=== PATIENT | male | born 1985 ===

== ENCOUNTER 2017-08-17 01:26 | Emergency (ER) | payer MEDICAID ==
[2017-08-17 01:46] VITALS: BP 145/93; PULSE 80; RESP 16; TEMP 97.7; O2SAT 100
--- NOTE | 2017-08-17 04:43 | CT ---
EXAM: CT Abdomen and Pelvis Without Intravenous Contrast CLINICAL HISTORY: 32 years old, male; Pain; Abdominal pain; Flank; Right; Additional info: Right flank pain TECHNIQUE: Axial computed tomography images of the abdomen and pelvis without intravenous contrast. All CT scans at this facility use one or more dose reduction techniques, viz.: automated exposure control; ma/kV adjustment per patient size (including targeted exams where dose is matched to indication; i.e. head); or iterative reconstruction technique. Coronal and sagittal reformatted images were created and reviewed. COMPARISON: CT ABD AND PELV W/CONTRAST 2014-01-02 04:50 FINDINGS: Limitations: Motion artifact - mild. Lower thorax: No acute findings. ABDOMEN: Liver: Fatty infiltration. Small calcification. Gallbladder and bile ducts: No calcified stones. No ductal dilation. Pancreas: Unremarkable. No ductal dilation. Spleen: No splenomegaly. Adrenals: No mass. Kidneys and ureters: No renal calculi. No hydronephrosis. Stomach and bowel: No definite mural thickening. No obstruction. Appendix: Normal caliber. No inflammation. PELVIS: Bladder: Unremarkable. No stones. Reproductive: Unremarkable as visualized. ABDOMEN and PELVIS: Intraperitoneal space: No significant fluid collection. No free air. Bones/joints: Mild degenerative changes of spine. No acute fracture. Soft tissues: Unremarkable. Vasculature: Unremarkable. No aneurysm. Lymph nodes: No pathologically enlarged lymph nodes. IMPRESSION: 1. No definite CT evidence of urolithiasis. 2. Incidental/non-acute findings are described above.
--- NOTE | 2017-08-17 05:45 | ED PDOC ---
HPI: Male Pain Time Seen by Provider: 08/17/17 03:12 Chief Complaint (Nursing): Male Genitourinary Chief Complaint (Provider): Right flank/back pain History Per: Patient, Family History/Exam Limitations: clinical condition Onset/Duration Of Symptoms: Days Current Symptoms Are (Timing): Still Present Severity: Mild Additional Complaint(s): Mother states patient is autistic and has been complaining of right sided pain. No fall or injury. Mother states that he is not a good historian. Pt was not given medications for pain. No N/V. Normal BM Past Medical History Reviewed: Historical Data, Nursing Documentation, Vital Signs Vital Signs: Last Vital Signs Temp 97.7 F 08/17/17 01:44 Pulse 80 08/17/17 01:44 Resp 16 08/17/17 01:44 BP 145/93 H 08/17/17 01:44 Pulse Ox 100 08/17/17 01:44 - Medical History PMH: No Chronic Diseases - Surgical History Surgical History: No Surg Hx - Family History Family History: States: No Known Family Hx - Living Arrangements Living Arrangements: With Family - Social History Current smoker - smoking cessation education provided: No - Home Medications Home Medications: Ambulatory Orders Medication Instructions Recorded Ibuprofen [Motrin Tab] 800 mg PO Q6H PRN #20 tab 08/17/17 - Allergies Allergies/Adverse Reactions: Allergies Allergy/AdvReac Type Severity Reaction Status Date / Time No Known Allergies Allergy Verified 08/17/17 01:43 Review of Systems ROS Statement: Except As Marked, All Systems Reviewed And Found Negative Constitutional: Negative for: Fever, Chills Gastrointestinal: Negative for: Nausea, Vomiting, Abdominal Pain Musculoskeletal: Positive for: Other Physical Exam - Reviewed Nursing Documentation Reviewed: Yes Vital Signs Reviewed: Yes - Physical Exam Appears: Positive for: Well, Non-toxic, No Acute Distress Head Exam: Positive for: ATRAUMATIC, NORMAL INSPECTION, NORMOCEPHALIC Skin: Positive for: Normal Color, Warm, DRY Eye Exam: Positive for: Normal appearance ENT: Positive for: Normal ENT Inspection Neck: Positive for: Normal, Painless ROM Cardiovascular/Chest: Positive for: Regular Rate, Rhythm Respiratory: Positive for: Normal Breath Sounds. Negative for: Accessory Muscle Use, Respiratory Distress Gastrointestinal/Abdominal: Positive for: Normal Exam, Bowel Sounds, Soft. Negative for: Tenderness Back: Positive for: Normal Inspection Extremity: Positive for: Normal ROM Neurologic/Psych: Positive for: Alert, Oriented - ECG O2 Sat by Pulse Oximetry: 100 Medical Decision Making Medical Decision Making: CT normal. Urine normal. Disposition - Clinical Impression Clinical Impression: Back pain - Patient ED Disposition Is Patient to be Admitted: No Counseled Patient/Family Regarding: Diagnosis, Need For Followup, Rx Given - Disposition Disposition: Routine/Home Disposition Time: 05:47 Condition: GOOD Prescriptions: Ibuprofen [Motrin Tab] 800 mg PO Q6H PRN #20 tab PRN Reason: Pain Instructions: Acute Low Back Pain (ED) Forms: [facility] (Icelandic) Print Language: ICELANDIC
== END 2017-08-17 06:35 | disposition home or self-care (01) ==
LOC: H.ER 01:26
DX: M54.5 Low back pain (principal); R10.9 Unspecified abdominal pain; F84.0 Autistic disorder

== ENCOUNTER 2017-11-02 00:52 | Emergency (ER) | payer MEDICAID ==
[2017-11-02 00:56] VITALS: BP 125/75; PULSE 78; RESP 18; TEMP 98; O2SAT 99
--- NOTE | 2017-11-02 01:52 | ED PDOC ---
HPI: Back Chief Complaint (Provider): Back pain History Per: Patient, Family (Mother) Onset/Duration Of Symptoms: Persistent, Other (months) Current Symptoms Are (Timing): Still Present Quality Of Discomfort: "Pain" Pain Scale Rating Of: 6 Additional Complaint(s): 32 y/o male with PMHx of Autism, and Mental retardation ( History obtained from patient's mother) presents to ED complaining of lower back pain since August this year. Lower back pain is not radiating to lower extremities, no associated with urinary symptoms. Mom denies history of any trauma. Denies Numbness, tingling and/or weakness of lower extremities. Will is able to stand and ambulate by himself without difficulty, and is not using any human or device assistance at home for transfer or ambulation. Mom denies blood in urine, bowel or bladder incontinence. PMD: Adrianne Machado <Kamla Rios - Last Filed: 11/02/17 06:37> <Danae Oviedo - Last Filed: 11/03/17 01:56> Time Seen by Provider: 11/02/17 01:15 Chief Complaint (Nursing): Back Pain Past Medical History Vital Signs: Last Vital Signs Temp 98 F 11/02/17 00:53 Pulse 78 11/02/17 00:53 Resp 11/02/17 00:53 BP 125/75 11/02/17 00:53 Pulse Ox 99 11/02/17 00:53 - Family History Family History: States: No Known Family Hx <Kamla Rios - Last Filed: 11/02/17 06:37> Vital Signs: Last Vital Signs Temp 98 F 11/02/17 00:53 Pulse 78 11/02/17 00:53 Resp 11/02/17 00:53 BP 125/75 11/02/17 00:53 Pulse Ox 99 11/02/17 06:38 <Danae Oviedo - Last Filed: 11/03/17 01:56> - Home Medications Home Medications: Ambulatory Orders Medication Instructions Recorded Ibuprofen [Motrin Tab] 800 mg PO Q6H PRN #20 tab 08/17/17 Ibuprofen [Motrin] 600 mg PO Q6H PRN #20 tab 11/02/17 - Allergies Allergies/Adverse Reactions: Allergies Allergy/AdvReac Type Severity Reaction Status Date / Time No Known Allergies Allergy Verified 08/17/17 01:43 Supervising Attending Note - Supervising Attending Note The Documented history was done by the: Physician Mothers Helper The documented physical exam was done by the: Physician Mothers Helper The documented procedures were done by the: Physician Mothers Helper - Attestation: I have personally seen and examined this patient.: Yes I have fully participated in the care of the patient.: Yes I have reviewed all pertinent clinical information: Yes <Danae Oviedo - Last Filed: 11/03/17 01:56> Review of Systems ROS Statement: Except As Marked, All Systems Reviewed And Found Negative <Kamla Rios - Last Filed: 11/02/17 06:37> Physical Exam - Reviewed Vital Signs Reviewed: Yes - Physical Exam Appears: Positive for: Non-toxic, No Acute Distress. Negative for: In Acute Distress Skin: Positive for: Normal Color, Warm, Dry Eye Exam: Positive for: Normal appearance ENT: Positive for: Normal ENT Inspection Neck: Positive for: Supple Cardiovascular/Chest: Positive for: Regular Rate, Rhythm. Negative for: Chest Non Tender, Edema, Gallop Respiratory: Positive for: Normal Breath Sounds. Negative for: Accessory Muscle Use, Crackles, Rales, Stridor, Wheezing, Respiratory Distress Gastrointestinal/Abdominal: Positive for: Bowel Sounds, Soft. Negative for: Tenderness, Mass, Distended, Guarding, Rebound Back: Positive for: Normal Inspection, Vertebral Tenderness, Other (tenderness to palpation of dorsal/lumbar spine, as well as paraspinal muscles). Negative for: L CVA Tenderness, R CVA Tenderness, Muscle Spasm Extremity: Negative for: Pedal Edema, Calf Tenderness Neurologic/Psych: Positive for: Alert <Kamla Rios - Last Filed: 11/02/17 06:37> - ECG O2 Sat by Pulse Oximetry: 99 <Kamla Rios - Last Filed: 11/02/17 06:37> Medical Decision Making Medical Decision Making: Lower Back Pain -chronic -most likely Musculoskeletal etiology -Dorsal/Lumbar spine x ray -UA -Ibuprofen 600 mg PO once -re-assess Re-evaluation pain improved significantly after Ibuprofen 600 mg PO once -UA normal -Dorsal/lumbar sp : read by me, no gross evidence of fractures. Pending official report -stable to discharge home on Ibuprofen PO for pain control, and outpatient f/u with PMD in 1 week. ER precautions given. <Kamla Rios - Last Filed: 11/02/17 06:37> Disposition - Patient ED Disposition Is Patient to be Admitted: No Discussed With : Danae Oviedo - Disposition Disposition Time: 05:00 <Kamla Rios - Last Filed: 11/02/17 06:37> <Danae Oviedo - Last Filed: 11/03/17 01:56> - Clinical Impression Clinical Impression: Chronic back pain - Disposition Referrals: Gaby Machado MD [Primary Care Provider] - Condition: IMPROVED Additional Instructions: follow up with your primary doctor in 1-2 days return to the ED with any worsening or concerning symptoms Prescriptions: Ibuprofen [Motrin] 600 mg PO Q6H PRN #20 tab PRN Reason: Pain, Moderate (4-7) Instructions: Low Back Pain in Adults Forms: [facility] (Vincentian)
[2017-11-02 01:54] LABS: SQUAMOUS EPITHIAL < 1 /hpf (0-5); URINE BILIRUBIN NEGATIVE (NEGATIVE); URINE BLOOD NEGATIVE (NEGATIVE); URINE CLARITY SLIGHTY-CLOUDY (Clear); URINE COLOR YELLOW (YELLOW); URINE GLUCOSE (UA) NEG (Normal); URINE LEUKOCYTE ESTERASE NEG Leu/uL (Negative); URINE PROTEIN NEGATIVE (NEGATIVE); URINE UROBILINOGEN 0.2-1.0 mg/dL (0.2-1.0)
--- NOTE | 2017-11-02 08:14 | RAD ---
HISTORY: Tenderness to palpation COMPARISON: No prior. FINDINGS: BONES: Normal thoracic curvature is maintained. Still, a mild chronic fracture of the T11 vertebral body appreciated as compared to prior abdomen pelvis CT examination 08/17/2017. No spondylolisthesis Gross spondylosis appreciate the mid to inferior thoracic spine anteriorly again evident. No definitive destructive bony lesion appreciable. DISC SPACES: Grossly normal heights are preserved though spondylosis is seen as discussed above. SOFT TISSUES: Normal. OTHER FINDINGS: None. IMPRESSION: A chronic mild compression fracture of T11 is identified. No severe compression fracture or spondylolisthesis appreciable throughout. Multilevel degenerative disc disease appreciated concentrated at the mid to inferior levels. Further characterization can be provided by MRI or CT as clinically warranted.
--- NOTE | 2017-11-02 08:18 | RAD ---
PROCEDURE: Radiographs of the Lumbar Spine. HISTORY: LB pain COMPARISON: Abdomen and pelvis CT examination 08/17/2017. FINDINGS: BONES: Normal alignment. No listhesis. No fracture. Interval prominent spondylolisthesis appreciate anteriorly at L1-2 and L3-4, mild otherwise throughout the remainder of the lumbar spine. DISC SPACES: No spondylolisthesis or loss of intervertebral disc heights appreciated. OTHER FINDINGS: None. IMPRESSION: Interval spondylosis particularly at L1-2 and L3-4 anteriorly. No fracture or spondylolisthesis identified. Follow-up MRI or CT are available for more detailed evaluation if clinically warranted.
== END 2017-11-02 04:17 | disposition home or self-care (01) ==
LOC: H.ER 00:52
DX: M54.5 Low back pain (principal); G89.29 Other chronic pain; F79 Unspecified intellectual disabilities; F84.0 Autistic disorder